=== PATIENT | male | born 1965 | race Caucasian/White ===

== ENCOUNTER 2017-05-28 15:59 | Emergency (ER) | payer OTHER ==
[~2017-05-28] VITALS: Ht 182.9 cm; Wt 88.0 kg
[2017-05-28 16:05] VITALS: BP 148/98; PULSE 124; RESP 24; TEMP 98.8; O2SAT 95
[2017-05-28] MEDS ORDERED: NALT50TA3 PO (16:10)
--- NOTE | 2017-05-28 16:12 | PD ---
HPI Chief Complaint: Psychiatric Symptoms Time Seen by Provider: 16:12 Travel History International Travel<30 days: No Contact w/Intl Traveler<30days: No Traveled to known affect area: No History of Present Illness HPI 52-year-old male presents to the emergency department under Haider act for psychiatric evaluation. Patient states for the last 10 months he has been trying to "drink himself to ." States prior to this, him and his father were taking care of his mother until she . Then he . He states he was a functioning alcoholic until then, but has been unable to control himself since. Denies any recent illnesses, fever, chills. He contacted several suicide hotlines today and then was placed through to the [employer] line. At that time police showed up and he was placed under Haider act. [facility] Social History Alcohol Use: Yes Tobacco Use: Yes Substance Use: No Allergies-Medications (Allergen,Severity, Reaction): Coded Allergies: No Known Allergies (Verified Allergy, Unknown, 05/28/17) Reported Meds & Prescriptions Reported Meds & Active Scripts Active Reported Naltrexone (Naltrexone HCl) 50 Mg Tab 50 Mg PO TID Review of Systems Except as stated in HPI: all other systems reviewed are Neg Physical Exam Narrative GENERAL: Well-nourished male patient, tremulous, diaphoretic, seems to be withdrawing. SKIN: Focused skin assessment warm/a friend HEAD: Atraumatic. Normocephalic. EYES: Pupils equal and round. No scleral icterus. No injection or drainage. ENT: No nasal bleeding or discharge. Mucous membranes pink and moist. NECK: Trachea midline. No JVD. CARDIOVASCULAR: Tachycardic rate and rhythm. No murmur appreciated. RESPIRATORY: No accessory muscle use. Clear to auscultation. Breath sounds equal bilaterally. GASTROINTESTINAL: Abdomen soft, non-tender, nondistended. Hepatic and splenic margins not palpable. MUSCULOSKELETAL: No obvious deformities. No clubbing. No cyanosis. No edema. NEUROLOGICAL: Awake and alert. No obvious cranial nerve deficits. Motor grossly within normal limits. Normal speech. Data Data Last Documented VS Vital Signs Date Time Temp Pulse Resp B/P (MAP) Pulse Ox O2 Delivery O2 Flow Rate FiO2 05/29/17 11:22 100 18 130/95 (107) 98 Room Air 05/29/17 02:08 98.4 Orders Orders Complete Blood Count With Diff (05/28/17 16:13) Basic Metabolic Panel (Bmp) (05/28/17 16:13) Iv Access Insert/Monitor (05/28/17 16:13) Psych Screen (05/28/17 16:13) Drug Screen, Random Urine (05/28/17 16:13) Alcohol (Ethanol) (05/28/17 16:13) Sodium Chlor 0.9% 1000 Ml Inj (Ns 1000 M (05/28/17 16:15) Diet Regular Basic (05/28/17 Dinner) Alcohol Withdrawal Asmt-Ciwa ONCE (05/28/17 16:14) Flumazenil Inj (Romazicon Inj) (05/28/17 16:15) Lorazepam (Ativan) (05/28/17 16:15) Lorazepam Inj (Ativan Inj) (05/28/17 16:15) Lorazepam (Ativan) (05/28/17 16:15) Lorazepam Inj (Ativan Inj) (05/28/17 16:15) Lorazepam Inj (Ativan Inj) (05/28/17 16:15) Lorazepam Inj (Ativan Inj) (05/28/17 16:15) Diet Regular Basic (05/29/17 Breakfast) Labs Laboratory Tests Test 05/28/17 16:29 White Blood Count 6.0 TH/MM3 Red Blood Count 4.85 MIL/MM3 Hemoglobin 15.8 GM/DL Hematocrit 46.1 % Mean Corpuscular Volume 95.0 FL Mean Corpuscular Hemoglobin 32.5 PG Mean Corpuscular Hemoglobin Concent 34.2 % Red Cell Distribution Width 14.0 % Platelet Count 220 TH/MM3 Mean Platelet Volume 9.2 FL Neutrophils (%) (Auto) 72.9 % Lymphocytes (%) (Auto) 19.7 % Monocytes (%) (Auto) 6.7 % Eosinophils (%) (Auto) 0.1 % Basophils (%) (Auto) 0.6 % Neutrophils # (Auto) 4.4 TH/MM3 Lymphocytes # (Auto) 1.2 TH/MM3 Monocytes # (Auto) 0.4 TH/MM3 Eosinophils # (Auto) 0.0 TH/MM3 Basophils # (Auto) 0.0 TH/MM3 CBC Comment DIFF FINAL Differential Comment Blood Urea Nitrogen 13 MG/DL Creatinine 0.85 MG/DL Random Glucose 94 MG/DL Calcium Level 8.9 MG/DL Sodium Level 140 MEQ/L Potassium Level 4.1 MEQ/L Chloride Level 103 MEQ/L Carbon Dioxide Level 21.9 MEQ/L Anion Gap 15 MEQ/L Estimat Glomerular Filtration Rate 95 ML/MIN Urine Opiates Screen NEG Urine Barbiturates Screen NEG Urine Amphetamines Screen NEG Urine Benzodiazepines Screen NEG Urine Cocaine Screen NEG Urine Cannabinoids Screen NEG Ethyl Alcohol Level 30 MG/DL MDM Medical Decision Making Medical Screen Exam Complete: Yes Emergency Medical Condition: Yes Medical Record Reviewed: Yes Differential Diagnosis Mood disorder versus personality disorder versus adjustment reaction disorder Alcohol withdrawal versus electrolyte abnormality versus anxiety Narrative Course 52-year-old male presents to emergency department for evaluation under Haider act. Patient appears anxious, tremulous, and diaphoretic. He states he has not had alcohol since this morning. States this happens frequently when he withdraws. He does state he has been trying to "drink himself to ." Laboratory Tests Test 05/28/17 16:29 White Blood Count 6.0 TH/MM3 Red Blood Count 4.85 MIL/MM3 Hemoglobin 15.8 GM/DL Hematocrit 46.1 % Mean Corpuscular Volume 95.0 FL Mean Corpuscular Hemoglobin 32.5 PG Mean Corpuscular Hemoglobin Concent 34.2 % Red Cell Distribution Width 14.0 % Platelet Count 220 TH/MM3 Mean Platelet Volume 9.2 FL Neutrophils (%) (Auto) 72.9 % Lymphocytes (%) (Auto) 19.7 % Monocytes (%) (Auto) 6.7 % Eosinophils (%) (Auto) 0.1 % Basophils (%) (Auto) 0.6 % Neutrophils # (Auto) 4.4 TH/MM3 Lymphocytes # (Auto) 1.2 TH/MM3 Monocytes # (Auto) 0.4 TH/MM3 Eosinophils # (Auto) 0.0 TH/MM3 Basophils # (Auto) 0.0 TH/MM3 CBC Comment DIFF FINAL Differential Comment Blood Urea Nitrogen 13 MG/DL Creatinine 0.85 MG/DL Random Glucose 94 MG/DL Calcium Level 8.9 MG/DL Sodium Level 140 MEQ/L Potassium Level 4.1 MEQ/L Chloride Level 103 MEQ/L Carbon Dioxide Level 21.9 MEQ/L Anion Gap 15 MEQ/L Estimat Glomerular Filtration Rate 95 ML/MIN Urine Opiates Screen NEG Urine Barbiturates Screen NEG Urine Amphetamines Screen NEG Urine Benzodiazepines Screen NEG Urine Cocaine Screen NEG Urine Cannabinoids Screen NEG Ethyl Alcohol Level 30 MG/DL CIWA protocol is initiated. Patient is medically cleared to undergo psychiatric screening for further evaluation and disposition. 05/29/2017 @1410 Pt has been seen and evaluated by psychiatry. BA will be lifted at this time. Diagnosis Primary Impression: Adjustment reaction with anxiety and depression Additional Impression: Alcohol withdrawal Qualified Codes: F10.239 - Alcohol dependence with withdrawal, unspecified Referrals: [facility] (Out patient) Primary Care Physician Patient Instructions: Abuse of Alcohol (ED), General Instructions Additional Instructions: Follow up with primary care provider Consume alcohol in moderation Return immediately with any acute worsening of symptoms Med/Other Pt SpecificInfo: No Change to Meds Disposition: 01 DISCHARGE HOME Condition: Stable Laura Ramirez May 28, 2017 16:12
[2017-05-28] MEDS ORDERED: LORazepam 2 MG/ML VIAL IV PUSH PRN ×4 (16:15)
[2017-05-28] MEDS ORDERED: LORazepam 1 MG TAB PO PRN (16:15)
[2017-05-28] MEDS ORDERED: LORazepam 2 MG TAB PO PRN (16:15)
[2017-05-28] MEDS ORDERED: FLUMAZENIL 0.5 MG/5 ML VIAL IV PUSH PRN (16:15)
[2017-05-28] MEDS ORDERED: SODIUM CHLOR 0.9% 1000 ML INJ 1,000 ML IV ONE (16:15)
[2017-05-28 17:01] LABS: AUTOMATED NEUTROPHIL # 4.4 TH/MM3 (1.8-7.7); BASOPHIL % 0.6 % (0.0-2.0); EOSINOPHIL % 0.1 % (0.0-4.0); HEMATOCRIT 46.1 % (39.0-51.0); HEMO FLAGS DIFF FINAL; LYMPH % 19.7 % (9.0-44.0); LYMPHOCYTE # 1.2 TH/MM3 (1.0-4.8); MEAN CORPUSCULAR HEMOGLOBIN 32.5 PG (27.0-34.0); MEAN CORPUSCULAR HGB CONC 34.2 % (32.0-36.0); MONO % 6.7 % (0.0-8.0); NEUT % 72.9 % (16.0-70.0); PLATELET COUNT 220 TH/MM3 (150-450); RED BLOOD COUNT 4.85 MIL/MM3 (4.50-5.90)
[2017-05-28 17:20] LABS: BICARBONATE 21.9 MEQ/L (21.0-32.0)
[2017-05-28 17:21] LABS: POTASSIUM 4.1 MEQ/L (3.5-5.1)
[2017-05-29 00:40] VITALS: BP 149/104; PULSE 101; RESP 20; O2SAT 97
[2017-05-29 00:55] VITALS: BP 165/99; PULSE 99; RESP 18; O2SAT 97
[2017-05-29 02:08] VITALS: BP 145/102; PULSE 105; RESP 18; TEMP 98.4; O2SAT 99
[2017-05-29 06:32] VITALS: BP 169/108; PULSE 104; RESP 18; O2SAT 98
[2017-05-29 11:22] VITALS: BP 130/95; PULSE 100; RESP 18; O2SAT 98
--- NOTE | 2017-05-29 15:01 | PD ---
History of Present Illness Chief Complaint: Psychiatric Symptoms Time Seen by Provider: 13:30 Travel History International Travel<30 Days: No Contact w/Intl Traveler<30days: No Known affected area: No Legal Status Legal Status: Haider Act Haider Act Signed By: Kody Viera History of Present Illness: Patient apparently made suicidal comments to law enforcement after he had been drinking for 3 days straight. At this time, he is no longer intoxicated. He denies any suicidal, homicidal ideation, plan or intent. He is calm, pleasant and cooperative. In fact, he is smiling and chuckling due to his own behavior. He states whenever he drinks like this he becomes more roasts and can be suicidal. He demonstrates no psychotic symptoms and his cognition is intact. He is competent to contract for safety and he is verbally doing so. He was encouraged to stop drinking by this physicians. [facility] Past Medical History Inguinal Hernia: Yes Influenza Vaccination: Yes Past Surgical History Abdominal Surgery: Yes (RIGHT INGUINAL) Psychiatric History Psychiatric History Hx Psychiatric Treatment: NO TREATMENT History of Inpatient Treatment: No Guns or firearms in home: No Social History Hx Alcohol Use: Yes Hx Tobacco Use: Yes Hx Substance Use: Yes Substance Use Type: Alcohol Hx of Substance Use Treatment: Yes Allergies-Medications (Allergen,Severity, Reaction): Coded Allergies: No Known Allergies (Verified Allergy, Unknown, 05/28/17) Reported Meds & Prescriptions Reported Meds & Active Scripts Active Reported Naltrexone (Naltrexone HCl) 50 Mg Tab 50 Mg PO TID Review of Systems Except as stated in HPI: all other systems reviewed are Neg Exam Alert: Yes [place]: Person, Place, Date, Situation Mood: Calm Affect: Appropriate Speech: Clear Eye Contact: Normal Memory Intact: Immediate, Recent Insight/Judgement Adequate MDM Medical Decision Making Medical Record Reviewed: Yes Assessment/Plan Patient interviewed at bedside with nurse Lucero. Record was reviewed. He does not meet criteria for Haider act or involuntary psychiatric hospitalization at this time. He was advised to discontinue his alcohol abuse Orders Orders Complete Blood Count With Diff (05/28/17 16:13) Basic Metabolic Panel (Bmp) (05/28/17 16:13) Iv Access Insert/Monitor (05/28/17 16:13) Psych Screen (05/28/17 16:13) Drug Screen, Random Urine (05/28/17 16:13) Alcohol (Ethanol) (05/28/17 16:13) Sodium Chlor 0.9% 1000 Ml Inj (Ns 1000 M (05/28/17 16:15) Diet Regular Basic (05/28/17 Dinner) Alcohol Withdrawal Asmt-Ciwa ONCE (05/28/17 16:14) Flumazenil Inj (Romazicon Inj) (05/28/17 16:15) Lorazepam (Ativan) (05/28/17 16:15) Lorazepam Inj (Ativan Inj) (05/28/17 16:15) Lorazepam (Ativan) (05/28/17 16:15) Lorazepam Inj (Ativan Inj) (05/28/17 16:15) Lorazepam Inj (Ativan Inj) (05/28/17 16:15) Lorazepam Inj (Ativan Inj) (05/28/17 16:15) Diet Regular Basic (05/29/17 Breakfast) Results Vital Signs Date Time Temp Pulse Resp B/P (MAP) Pulse Ox O2 Delivery O2 Flow Rate FiO2 05/29/17 14:47 05/29/17 11:22 100 18 130/95 (107) 98 Room Air 05/29/17 06:32 104 18 169/108 (128) 98 Room Air 05/29/17 02:08 98.4 105 18 145/102 (116) 99 Room Air 05/29/17 00:55 99 18 165/99 (121) 97 Room Air 05/29/17 00:40 101 20 149/104 (119) 97 Room Air 05/28/17 16:05 98.8 124 24 148/98 (115) 95 Laboratory Tests Test 05/28/17 16:29 White Blood Count 6.0 Red Blood Count 4.85 Hemoglobin 15.8 Hematocrit 46.1 Mean Corpuscular Volume 95.0 Mean Corpuscular Hemoglobin 32.5 Mean Corpuscular Hemoglobin Concent 34.2 Red Cell Distribution Width 14.0 Platelet Count 220 Mean Platelet Volume 9.2 Neutrophils (%) (Auto) 72.9 Lymphocytes (%) (Auto) 19.7 Monocytes (%) (Auto) 6.7 Eosinophils (%) (Auto) 0.1 Basophils (%) (Auto) 0.6 Neutrophils # (Auto) 4.4 Lymphocytes # (Auto) 1.2 Monocytes # (Auto) 0.4 Eosinophils # (Auto) 0.0 Basophils # (Auto) 0.0 CBC Comment DIFF FINAL Differential Comment Blood Urea Nitrogen 13 Creatinine 0.85 Random Glucose 94 Calcium Level 8.9 Sodium Level 140 Potassium Level 4.1 Chloride Level 103 Carbon Dioxide Level 21.9 Anion Gap 15 Estimat Glomerular Filtration Rate 95 Urine Opiates Screen NEG Urine Barbiturates Screen NEG Urine Amphetamines Screen NEG Urine Benzodiazepines Screen NEG Urine Cocaine Screen NEG Urine Cannabinoids Screen NEG Ethyl Alcohol Level 30 Diagnosis Primary Impression: Adjustment disorder with mixed disturbance of emotions and conduct Additional Impression: Alcohol abuse Referrals: [facility] (Out patient) Primary Care Physician Departure Forms: Tests/Procedures Patient Instructions: General Instructions, Abuse of Alcohol (ED) Additional Instructions: Follow up with primary care provider Consume alcohol in moderation Return immediately with any acute worsening of symptoms Disposition: 01 DISCHARGE HOME Condition: Stable Problem Qualifiers Serjio Barragan MD May 29, 2017 15:01
== END 2017-05-29 14:50 | disposition home or self-care (01) ==
LOC: NEDAMB 15:59 → NEPJ 05-29 14:50
DX: F43.25 Adjustment disorder with mixed disturbance of emotions and conduct (principal); F10.10 Alcohol abuse, uncomplicated; Z79.899 Other long term (current) drug therapy; Z72.0 Tobacco use
CPT/HCPCS: 80048; 80307; 85025; 96361; 96374; 96376; 99284; J2060; J7030